=== PATIENT | male | born 1940 | race Caucasian/White ===

== ENCOUNTER 2022-10-16 15:41 | Inpatient (IN) ==
--- NOTE | 2022-10-16 16:04 | Emergency Department Note ---
Impression & Plan CHF (congestive heart failure), Fluid overload, HTN (hypertension) ED Provider Note NAME: VERNON ISSA AGE: 82 SEX: M : 1940 ARRIVES VIA: Ambulance INFORMANT: Patient, EMS ED PROVIDER(S): Tez Hanks DO CHIEF COMPLAINT: Shortness of breath HPI: Patient is an 82-year-old male who was brought in by EMS from PCPs office. Per report from EMS patient has been having shortness of breath for the past 2 weeks associated with swelling of the legs and 30 pound weight gain. [facility] He [facility] this. He denies any chest pain. No belly pain, nausea, vomiting, or diarrhea but notes the swelling in the legs coming up into the belly. No dysuria urgency or frequency. He does not believe that he takes any kind diuretics. He does admit to being told previously that he has had a previous LA. No cough or congestion. PAST MEDICAL HISTORY:See Below PAST SURGICAL HISTORY:See Below FAMILY HISTORY:See Below SOCIAL HISTORY:See Below HOME MEDICATIONS:See Below ALLERGIES:See Below VITALS:See Below PHYSICAL EXAMINATION: GENERAL: Sitting up in bed, alert, well appearing, well nourished, no distress, non-toxic EYE EXAM: normal conjunctiva. OROPHARYNX: mucous membranes are moist LUNGS: Clear to auscultation. Normal chest wall mechanics HEART: no murmurs, S1 normal and S2 normal ABDOMEN: abdomen soft, non-tender, normo-active bowel sounds, no masses, no rebound or guarding. BACK: Back is symmetrical on inspection and there is no deformity, no midline tenderness, no CVA tenderness. SKIN: no rashes and no bruising UPPER EXTREMITIES: upper extremities are grossly normal. LOWER EXTREMITIES: Pitting edema in the lower extremities tracking up to the mid thighs NEURO EXAM: Normal sensorium, cranial nerves II-XII grossly intact, normal speech, no gross weakness of arms, no gross weakness of legs. MEDICAL DECISION MAKING: Patient is an 82-year-old male who presents ER for above-stated complaint. IV was established blood work was obtained. External records were reviewed from the [facility]. Labs show no significant leukocytosis or anemia. BMP LFTs bilirubin was unremarkable. Troponin was negative. Lipase was normal. COVID was negative. Chest x-ray was without focal infiltrate. Patient was given IV Lasix and nitro paste. Updated bedside. Discussed with hospitalist admitted for further work- up. Triage Nursing notes reviewed. Limited review of prior medical records performed Vital Signs: reviewed and remarkable for no significant abnormalities Differential diagnosis: Differential diagnoses includes but is not limited to pneumonia, bronchitis, COPD/Asthma exacerbation, pneumothorax, pulmonary embolism, congestive heart failure, acute coronary syndrome ER treatment provided: See below Diagnostics interpreted by me include EKG and cardiac monitoring as listed below: -Cardiac Monitoring: An order was placed for continuous cardiac monitoring. The monitor shows a rate of 90 with sinus rhythm. -ECG: Sinus rhythm rate of 70 Left axis Poor baseline QTc 434 -Laboratory studies:Interpreted by me as stated above in MDM and shown below. Imaging studies: Xrays: As interpreted by me: Portable AP upright 1 view of the chest shows no focal infiltrate CTs show: none Consultation(s): As described in MDM Procedures:none Critical Care: None Past Med/Surg History Medical History (Updated 10/16/22 @ 22:24 by Tez Hanks DO) GERD (gastroesophageal reflux disease) HTN (hypertension) Social History (Updated 10/16/22 @ 18:24 by Jean Carlos Mccormick MD) Smoking Status: Never smoker Hx Alcohol Use: No Allergies Allergies Allergy/AdvReac Type Severity Reaction Status Date / Time simvastatin Allergy Unknown Unknown Verified 10/16/22 18:07 adalimumab [From Humira] AdvReac Intermediate NAUSEA/VOMI Verified 10/16/22 18:07 TING duloxetine AdvReac Intermediate IRRITABLE Verified 10/16/22 18:07 FEELING niacin AdvReac Intermediate Flushing Verified 10/16/22 18:07 Home Meds Home Medications Medication Instructions Recorded Confirmed amlodipine 5 mg tablet 5 mg PO DAILY 10/16/22 10/16/22 chlorthalidone 25 mg tablet 25 mg PO DAILY 10/16/22 10/16/22 diclofenac sodium 1 % topical gel 2 g topical DIRECTED PRN Pain 10/16/22 10/16/22 famotidine 20 mg tablet 20 mg PO BID 10/16/22 10/16/22 hydroxychloroquine 400 mg tablet 400 mg PO DAILY 10/16/22 10/16/22 levothyroxine 150 mcg tablet 150 mcg PO DAILYBB 10/16/22 10/16/22 metoprolol tartrate 50 mg tablet 75 mg PO BID 10/16/22 10/16/22 omeprazole 40 mg capsule,delayed 40 mg PO DAILY 10/16/22 10/16/22 release terazosin 2 mg capsule 8 mg PO HS 10/16/22 10/16/22 Results & Data (ED) Vital Signs Vital Signs - 24 hr 10/16/22 16:01 10/16/22 16:02 10/16/22 16:35 Temperature 36.7 C Temperature Source Oral Pulse Rate 70 68 Pulse Rate [Apical] 71 Pulse Rhythm Regular Pulse Rhythm [Apical] Pulse Strength Normal Pulse Strength [Apical] Respiratory Rate 20 16 Respiratory Effort / Characteristics Non-Labored Spontaneous SOB on Exertion Respiratory Depth Normal Respiratory Pattern Regular Blood Pressure 181/79 H Blood Pressure [Right Arm] 183/77 H Blood Pressure Mean 113 Blood Pressure Mean [Right Arm] 112 Blood Pressure Position Lying Blood Pressure Position [Right Arm] Pulse Oximetry 97 95 Oxygen Delivery Method Room Air Room Air Sepsis Recent Fever Within 48 Hours No Sepsis New/Unexplained Change in Mental Status N/A Sepsis Action Taken by Nursing No Action Required 10/16/22 18:07 Temperature Temperature Source Pulse Rate Pulse Rate [Apical] 72 Pulse Rhythm Pulse Rhythm [Apical] Regular Pulse Strength Pulse Strength [Apical] Normal Respiratory Rate 22 Respiratory Effort / Characteristics Non-Labored Spontaneous SOB on Exertion Respiratory Depth Normal Respiratory Pattern Blood Pressure Blood Pressure [Right Arm] 180/96 H Blood Pressure Mean Blood Pressure Mean [Right Arm] 124 Blood Pressure Position Blood Pressure Position [Right Arm] Lying Pulse Oximetry 97 Oxygen Delivery Method Room Air Sepsis Recent Fever Within 48 Hours Sepsis New/Unexplained Change in Mental Status Sepsis Action Taken by Nursing Laboratory Data 10/16/22 15:56 10/16/22 15:56 Lab Results 10/16/22 10/16/22 10/16/22 Range/Units 15:56 15:56 15:56 WBC 6.65 (4.8-10.8) K/ul RBC 4.23 L (4.70-6.10) M/uL Hgb 12.6 L (14.0-18.0) g/dl Hct 38.4 L (42.0-52.0) % MCV 90.8 (80.0-100.0) fL MCH 29.8 (25.0-34.0) pg MCHC 32.8 (32.0-36.0) g/dL RDW Std Deviation 42.6 (36.4-46.3) fL RDW Coeff of Adrian 12.8 (11.5-14.5) % Plt Count 194 (130-400) K/uL MPV 10.4 (9.4-12.4) fL Immature Gran % (Auto) 0.5 % Neut % (Auto) 65.1 % Lymph % (Auto) 25.4 % Crisp % (Auto) 6.5 % Eos % (Auto) 1.7 % Baso % (Auto) 0.8 % Neut # (Auto) 4.34 (1.40-6.50) K/uL Lymph # (Auto) 1.69 (1.2-3.4) K/uL Crisp # (Auto) 0.43 (0.11-0.59) K/uL Eos # (Auto) 0.11 (0-0.50) K/uL Baso # (Auto) 0.05 (0-0.2) K/uL Immature Gran # (Auto) 0.03 (0.01-0.20) K/uL Sodium 139 (136-145) mmol/L Potassium 3.8 (3.5-5.1) mmol/L Chloride 106 (98-107) mmol/L Carbon Dioxide 29 (21-32) mmol/L Anion Gap 4 (3-11) BUN 13 (6-23) mg/dl Creatinine 0.85 (0.6-1.4) mg/dl Est Cr Clr Drug Dosing 87.0 ml/min Est GFR ( Amer) 93.4 ml/min Est GFR (Non-Af Amer) 80.6 ml/min BUN/Creatinine Ratio 15.3 (10-20) Glucose 141 H (70-99(Fasting)) mg/dl Calcium 9.5 (8.6-10.3) mg/dl Total Bilirubin 0.3 (0.2-1.0) mg/dl AST 34 (13-39) U/L ALT 23 (7-52) U/L Alkaline Phosphatase 66 (34-104) U/L Troponin I High Sens 13.5 (0-20) pg/ml B-Natriuretic Peptide 205 H (0-100) pg/ml Total Protein 6.6 (6.0-8.3) gm/dl Albumin 3.8 (3.4-5.0) gm/dl Globulin 2.8 (2.5-4.0) gm/dl Albumin/Globulin Ratio 1.4 (0.9-2) Lipase 15 (11-82) U/L SARS-CoV-2, RNA, NAAT (NEGATIVE) 10/16/22 Range/Units 15:56 WBC (4.8-10.8) K/ul RBC (4.70-6.10) M/uL Hgb (14.0-18.0) g/dl Hct (42.0-52.0) % MCV (80.0-100.0) fL MCH (25.0-34.0) pg MCHC (32.0-36.0) g/dL RDW Std Deviation (36.4-46.3) fL RDW Coeff of Adrian (11.5-14.5) % Plt Count (130-400) K/uL MPV (9.4-12.4) fL Immature Gran % (Auto) % Neut % (Auto) % Lymph % (Auto) % Crisp % (Auto) % Eos % (Auto) % Baso % (Auto) % Neut # (Auto) (1.40-6.50) K/uL Lymph # (Auto) (1.2-3.4) K/uL Crisp # (Auto) (0.11-0.59) K/uL Eos # (Auto) (0-0.50) K/uL Baso # (Auto) (0-0.2) K/uL Immature Gran # (Auto) (0.01-0.20) K/uL Sodium (136-145) mmol/L Potassium (3.5-5.1) mmol/L Chloride (98-107) mmol/L Carbon Dioxide (21-32) mmol/L Anion Gap (3-11) BUN (6-23) mg/dl Creatinine (0.6-1.4) mg/dl Est Cr Clr Drug Dosing ml/min Est GFR ( Amer) ml/min Est GFR (Non-Af Amer) ml/min BUN/Creatinine Ratio (10-20) Glucose (70-99(Fasting)) mg/dl Calcium (8.6-10.3) mg/dl Total Bilirubin (0.2-1.0) mg/dl AST (13-39) U/L ALT (7-52) U/L Alkaline Phosphatase (34-104) U/L Troponin I High Sens (0-20) pg/ml B-Natriuretic Peptide (0-100) pg/ml Total Protein (6.0-8.3) gm/dl Albumin (3.4-5.0) gm/dl Globulin (2.5-4.0) gm/dl Albumin/Globulin Ratio (0.9-2) Lipase (11-82) U/L SARS-CoV-2, RNA, NAAT NEGATIVE (NEGATIVE) Administered Medications Amlodipine Besylate (Amlodipine Besylate 5 Mg Tab) 5 mg PO DAILY ALYSSA Stop: 11/15/22 20:29 Last Admin: 10/16/22 21:54 Dose: 5 mg Documented By: PRISCILLA Aspirin (Aspirin 81 Mg Ectab) 81 mg PO DAILY ALYSSA Stop: 11/15/22 18:29 Last Admin: 10/16/22 21:54 Dose: 81 mg Documented By: PRISCILLA Enoxaparin Sodium (Enoxaparin Inj 40 Mg/0.4 Ml Syr) 40 mg SQ Q12H ALYSSA Stop: 11/15/22 20:59 Last Admin: 10/16/22 21:56 Dose: 40 mg Documented By: PRISCILLA Famotidine (Famotidine 20 Mg Tab) 20 mg PO BID ALYSSA Stop: 11/15/22 20:59 Last Admin: 10/16/22 21:55 Dose: 20 mg Documented By: PRISCILLA Metoprolol Tartrate (Metoprolol Tartrate 25 Mg Tab) 75 mg PO BID ALYSSA Stop: 11/15/22 20:59 Last Admin: 10/16/22 21:55 Dose: 75 mg Documented By: PRISCILLA Nitroglycerin (Nitroglycerin 2% Ointment 30gm Tube) 1 inch EXT Q6H ALYSSA Stop: 11/15/22 17:59 Last Admin: 10/16/22 19:09 Dose: 1 inch Documented By: PRISCILLA Terazosin HCl (Terazosin Hcl 5 Mg Cap) 5 mg PO HS ALYSSA Stop: 11/15/22 20:59 Last Admin: 10/16/22 21:55 Dose: 5 mg Documented By: PRISCILLA Terazosin HCl (Terazosin Hcl 1 Mg Cap) 3 mg PO HS ALYSSA Stop: 11/15/22 20:59 Last Admin: 10/16/22 21:55 Dose: 3 mg Documented By: PRISCILLA Discontinued Medications Aspirin (Aspirin 81 Mg Ectab) Confirm Administered Dose 81 mg PO .STK-MED ONE Stop: 10/16/22 20:04 Last Admin: 10/16/22 20:40 Dose: Not Given Documented By: PRISCILLA Furosemide (Furosemide 40 Mg/4 Ml Vial) 40 mg IV NOW STA Stop: 10/16/22 17:49 Last Admin: 10/16/22 18:41 Dose: 40 mg Documented By: PRISCILLA Imaging Data Radiologist's Impression: Chest X-Ray 10/16/22 16:01 XR chest 1V portable CLINICAL HISTORY: Chest pain, nonspecific COMPARISON STUDY: No previous studies for comparison. FINDINGS: Severe right glenohumeral joint osteoarthritis is incidentally noted. There is no pneumothorax or pleural effusion. Lower lung predominant reticulonodular interstitial thickening is noted. There may be small calcified nodules within the lungs. Moderate cardiomegaly. No convincing evidence for pulmonary edema. IMPRESSION: 1. Lower lung predominant reticulonodular interstitial thickening. This is nonspecific although chronic etiology is favored. Correlation with prior studies, if available, is recommended. 2. Moderate cardiomegaly. Interstitial thickening is likely chronic however mild pulmonary edema would be difficult to exclude. ACT 112: Negative or not required by law. Electronically signed by: Darrius Reis M.D. 10/16/2022 4:31 PM Discharge Plan Visit Data Chief Complaint: Swelling/Edema to Extremity Stated Complaint: EDEMA, DISTENTED AB, WEIGHT GAIN ED Provider: Tez Hanks Discharge Problem: CHF (congestive heart failure), Fluid overload, HTN (hypertension) Patient Disposition: Admitted As Inpatient Discharge Instructions Interventions: ED Discharge Assessment Last Done: 10/16/22 20:21
--- NOTE | 2022-10-16 16:33 | XRay Report ---
XR chest 1V portable CLINICAL HISTORY: Chest pain, nonspecific COMPARISON STUDY: No previous studies for comparison. FINDINGS: Severe right glenohumeral joint osteoarthritis is incidentally noted. There is no pneumotho rax or pleural effusion. Lower lung predominant reticulonodular interstitial thickening is noted. The re may be small calcified nodules within the lungs. Moderate cardiomegaly. No convincing evidence for pulmonary edema. IMPRESSION: 1. Lower lung predominant reticulonodular interstitial thickening. This is nonspecific although chron ic etiology is favored. Correlation with prior studies, if available, is recommended. 2. Moderate cardiomegaly. Interstitial thickening is likely chronic however mild pulmonary edema woul d be difficult to exclude. ACT 112: Negative or not required by law. Electronically signed by: Darrius Reis M.D. 10/16/2022 4:31 PM
--- NOTE | 2022-10-16 16:42 | Electrocardiogram Report ---
Test Reason : Blood Pressure : / mmHG Vent. Rate : 070 BPM Atrial Rate : 070 BPM P-R Int : 314 ms QRS Dur : 110 ms QT Int : 402 ms P-R-T Axes : 070 -47 089 degrees QTc Int : 434 ms Sinus rhythm with 1st degree A-V block Left anterior fascicular block Left ventricular hypertrophy with repolarization abnormality Abnormal ECG No previous ECGs available Confirmed by Lalo Kyle ([id number]) on 10/16/2022 4:42:04 PM Referred By: Confirmed By:Clayton Kyle
[2022-10-16 16:47] LABS: Basophils # (auto) 0.05 K/uL (0-0.2); Basophils % (auto) 0.8 %; Eosinophils # (auto) 0.11 K/uL (0-0.50); Eosinophils % (auto) 1.7 %; Hematocrit (blood only) 38.4 % (42.0-52.0); Hemoglobin 12.6 g/dl (14.0-18.0); Immature Granulocytes # (auto) 0.03 K/uL (0.01-0.20); Immature Granulocytes % (auto) 0.5 %; Lymphocytes # (auto) 1.69 K/uL (1.2-3.4); Lymphocytes % (auto) 25.4 %; Mean Corpuscular Hemoglobin 29.8 pg (25.0-34.0); Mean Corpuscular Hgb Conc 32.8 g/dL (32.0-36.0); Mean Corpuscular Volume 90.8 fL (80.0-100.0); Mean Platelet Volume 10.4 fL (9.4-12.4); Monocytes # (auto) 0.43 K/uL (0.11-0.59); Monocytes % (auto) 6.5 %; Neutrophils # (auto) 4.34 K/uL (1.40-6.50); Neutrophils % (auto) 65.1 %; Platelet Count 194 K/uL (130-400); RDW Coefficient of Variation 12.8 % (11.5-14.5); RDW Standard Deviation 42.6 fL (36.4-46.3); Red Blood Count 4.23 M/uL (4.70-6.10); White Blood Count 6.65 K/ul (4.8-10.8)
[2022-10-16 16:49] LABS: Albumin Globulin Ratio 1.4 (0.9-2); Albumin Level 3.8 gm/dl (3.4-5.0); BUN Creatinine Ratio 15.3 (10-20); Bilirubin,Total 0.3 mg/dl (0.2-1.0); Calcium 9.5 mg/dl (8.6-10.3); Est GFR (African American) 93.4 ml/min; Est GFR (Non-African American) 80.6 ml/min; Globulin 2.8 gm/dl (2.5-4.0); Potassium 3.8 mmol/L (3.5-5.1); Total Protein 6.6 gm/dl (6.0-8.3)
[2022-10-16 16:56] LABS: Troponin I High Sensitivity 13.5 pg/ml (0-20)
[2022-10-16] MEDS ORDERED: FUROSEMIDE 40 MG/4 ML VIAL IV STA (17:48)
--- NOTE | 2022-10-16 17:49 | History & Physical Report ---
Date of Service October 16, 2022 Assessment & Plan (1) Fluid overload: Plan: Lalo is an 82-year-old male OR patient who presents from the OR office for shortness of breath, leg swelling, 30 pounds weight gain concerning for acute on chronic CHF. Patient is a very limited historian, who reports he had some type of stent placed through his right wrist due to a popped blood vessel when he was lifting something in 2019 at [place], [facility] but does not know most of his medications, notes he has never been on aspirin or Plavix, and knows he should be on "a cardiac medication "but does not know what this is and does not take it." He denies a past history of heart failure or lung disease, unclear what type of stent he received in [place] 23 years ago. No echo or records on file. No [facility] packet available for review in ER. Medical history is sig nificantly limited, release of records signed and request being sent to [facility] due to patient being extremely poor historian, unfortunately [facility] not [facility] at time of ER presentation. med reconciliation performed through pharmacy audit. At time of assessment does show signs of volume overload, will complete cardiac assessment and treat as fluid overload. Patient denies history of bleeding problems, will continue aspirin daily until cardiac history and stent history is clarified. Acute fluid overload with exertional shortness of breath and increasing exercise intolerance Reportedly with increasing leg swelling bilaterally, exercise fatigue/limitation, and 30 pound weight gain. Denies asymmetrical leg swelling With elevated BNP, no acute ischemic changes on EKG, troponin is normal No echo available for review, unclear if preserved/reduced ejection fraction Basilar crackles? Mild dependent edema on CXR, auscultation is limited by habitus. Obvious fluid overload in the legs which may be due to CHF versus venous stasis Received Lasix 40 mg IV in the ER, continue twice daily with leg elevation and trend creatinine Given her significant lower extremity edema with relatively minimal pulmonary edema, will also obtain lower extremity Dopplers to R/oh DVT Patient reports he is "a salt a holic "and eats a lot of salty food every day, has never restricted his sodium intake. 2 g sodium limitation on admission No leukocytosis, no evidence of pneumonia Patient reports he had a normal dobutamine stress test performed 8 years ago which was normal, but he did not know other details regarding this COVID-negative No signs of ACS on admission Denies alcohol/tobacco use. Denies liver disease. Denies renal disease History of stenting procedure Patient reports 20 years ago he was lifting something when he "blew a blood vessel in his heart ", had a right radial access and had a stent placed at [facility]. He does not know any additional details regarding the stent, and does not have a stent card. He reports he was not on aspirin or Plavix afterwards, and this was not associated with heart failure. He reports he does not think this was a heart attack, it was a burst vessel, and that he had a dobutamine stress test 8 years ago which was normal. Records unclear, pending reconciliation from [facility] - Case reviewed with resident provider. No notes available in [facility] system, but there is one set o flabs from 1999 with an elevated trop I of 4.8. No additional notes/echo/procedure notes available for review Hypertension Continue amlodipine, chlorthalidone, metoprolol Lasix as noted History of hypothyroidism Continue Synthroid TSH pending DVT prophylaxis: Lovenox Disposition: Medical telemetry for diuresis CODE STATUS: DNR/DNI, discussed with patient at bedside Diet: Heart healthy, low-salt (2) HTN (hypertension): History of Present Illness Primary Care Provider: [facility] Lalo is an 82-year-old male OR patient who presents from the OR office for shortness of breath, leg swelling, 30 pounds weight gain concerning for acute on chronic CHF. Patient has not had chest pain at any point, and has never been on diuretics. He has previously been told he had an DE. Per pt '23 years ago I picked up something I shouldnt have and I popped a blood vessle. I drove to the hospital and I had to get TPA for my heart at [facility]. Went to [place] after and they prepared me I had a stent though my R wrist and put in a stent.' Does not see a verification lead Denies any hx of heart failure Meds: Terazosin, thyroid medicine s/p thyroidectomy, and is not sure what else. 'Was on some heart medicine after my stent but not aspirin, just one and that was all.' 'Im supposed to take blood pressure medicine im not sure what, bu tI dont. Makes me tired.' stress test8 years ago dobutamine was normal no ischemia. REports [facility] would have records from procedure in 1999. EKG: Sinus rhythm with first-degree AV block, no acute ST segment changes, QTc 434. Denies chest pain or chest pressure recently Gets cold easily, no fever/chills/sweats. No nausea/vomtiging. Endorses exertional short of breath, hasn't noticed much orthopnea. +leg swelling bilaterally without asymmetry. No calf pain. No warmth/tenderness fo the legs, chronic darkeneing of the lower legs bilaterally "I'm a uicz-r-dorat, I eat enormous amounts". Lately having more ham and eggs, salts foods, no soups, some chips. Alelrgic to niacin. No hx statin use. Medical History: Reviewed Medications: Reviewed Surgical History: Reviewed Family history: Reviewed Allergies: Reviewed. Allergic to niacin, got flushed Social History: Beer periodically but rarely. No tobacco use. Code Status: Full Code [facility] [place] [facility] [place]. Allergies Allergy/AdvReac Type Severity Reaction Status Date / Time simvastatin Allergy Unknown Unknown Verified 10/16/22 18:07 adalimumab [From Humira] AdvReac Intermediate NAUSEA/VOMI Verified 10/16/22 18:07 TING duloxetine AdvReac Intermediate IRRITABLE Verified 10/16/22 18:07 FEELING niacin AdvReac Intermediate Flushing Verified 10/16/22 18:07 Home Medications Medication Instructions Recorded Confirmed Type amlodipine 5 mg tablet 5 mg PO DAILY 10/16/22 10/16/22 History chlorthalidone 25 mg tablet 25 mg PO DAILY 10/16/22 10/16/22 History diclofenac sodium 1 % topical gel 2 g topical DIRECTED PRN Pain 10/16/22 10/16/22 History famotidine 20 mg tablet 20 mg PO BID 10/16/22 10/16/22 History hydroxychloroquine 400 mg tablet 400 mg PO DAILY 10/16/22 10/16/22 History levothyroxine 150 mcg tablet 150 mcg PO DAILYBB 10/16/22 10/16/22 History metoprolol tartrate 50 mg tablet 100 mg PO BID 10/16/22 10/16/22 History omeprazole 40 mg capsule,delayed 40 mg PO DAILY 10/16/22 10/16/22 History release terazosin 2 mg capsule 2 mg PO HS 10/16/22 10/16/22 History Past Med/Surg History Medical History (Updated 10/16/22 @ 18:23 by Jean Carlos Mccormick MD) GERD (gastroesophageal reflux disease) HTN (hypertension) Social History (Updated 10/16/22 @ 18:24 by Jean Carlos Mccormick MD) Smoking Status: Never smoker Hx Alcohol Use: No Review of Systems Review of Systems: All systems reviewed & are unremarkable except as noted in HPI & below Physical Exam Physical Exam: General: A&Ox3. NAD. Cooperative. HEENT: Atraumatic, normocephalic. Vision/hearing intact Pulm: Diminished in the bases with bibasilar crackles, no overt rales. Symmetrical chest rise. No increased work of breathing. No respiratory distress. Cardiac: RRR, -mrg. Radial pulses intact and symmetrical. JVD difficult to appreciate due to body habitus Abdominal: Obese, nontender, nondistended, soft. BS present. Extremities: Bilateral pitting edema through the mid thigh. Right anterior armenta with superficial ulceration/weeping ulcer without surrounding erythema/warmth/tenderness. Chronic venous stasis changes and hyperpigmentation bilaterally Results & Data Results & Data Vital Signs (Past 12 Hours) Vital Signs Temp Pulse Pulse Resp BP BP Pulse Ox 10/16/22 16:35 71 16 183/77 H 95 10/16/22 16:02 68 10/16/22 16:01 36.7 C 70 20 181/79 H 97 O2 Del Method 10/16/22 16:35 Room Air 10/16/22 16:02 10/16/22 16:01 Room Air PG Care Time/CCT Total # of Minutes Spent Total Time Spent with Patient: Total time spent is greater than 50% in coordination of care (as documented) at patient's floor/unit and/or counseling patient: Coding Level of Care Code 85633 INT INP/OBS CARE 3/75MIN Diagnoses Fluid overload E87.70 HTN (hypertension) I10
[2022-10-16] MEDS: NITROGLYCERIN 2% OINTMENT 30GM TUBE EXT SCH ×2 (19:09→23:29)
[2022-10-16] MEDS ORDERED: ASPIRIN 81 MG ECTAB PO ONE (20:03)
[2022-10-16] MEDS ORDERED: amLODIPine BESYLATE 5 MG TAB PO SCH (20:30)
[2022-10-16] MEDS: ASPIRIN 81 MG ECTAB PO SCH (21:54)
[2022-10-16] MEDS: TERAZOSIN HCL 5 MG CAP PO SCH (21:55)
[2022-10-16] MEDS: FAMOTIDINE 20 MG TAB PO SCH (21:55)
[2022-10-16] MEDS: METOPROLOL TARTRATE 25 MG TAB PO SCH (21:55)
[2022-10-16] MEDS: TERAZOSIN HCL 1 MG CAP PO SCH (21:55)
[2022-10-16] MEDS: ENOXAPARIN INJ 40 MG/0.4 ML SYR SQ SCH (21:56)
--- NOTE | 2022-10-16 23:14 | Ultrasound Report ---
Exam(s): US VENOUS BILATERAL LOWER EXTREMITIES EXAM: US Duplex Bilateral Lower Extremities Veins CLINICAL HISTORY: Reason for exam: r/o dvt. TECHNIQUE: Real-time duplex ultrasound scan of the bilateral lower extremity veins integrating B-mode two-dimensional vascular structure, Doppler spectral analysis, color flow Doppler imaging and compression. COMPARISON: No relevant prior studies available. FINDINGS: Right deep veins: Unremarkable. No DVT in the right common femoral, femoral, proximal deep femoral or popliteal veins. The veins demonstrate normal color flow, are normally compressible, with normal phasic flow and/or augmentation response. Right superficial veins: Unremarkable. No thrombus in the visualized right great saphenous vein. Left deep veins: Unremarkable. No DVT in the left common femoral, femoral, proximal deep femoral or popliteal veins. The veins demonstrate normal color flow, are normally compressible, with normal phasic flow and/or augmentation response. Left superficial veins: Unremarkable. No thrombus in the visualized left great saphenous vein. Soft tissues: No acute findings. No popliteal cyst. IMPRESSION: Normal bilateral lower extremity duplex venous ultrasound. Electronically signed by: Collin Landeros MD 10/16/22 23:13 PM
[2022-10-17 05:12] LABS: Basophils # (auto) 0.02 K/uL (0-0.2); Basophils % (auto) 0.4 %; Eosinophils % (auto) 1.8 %; Hematocrit (blood only) 36.4 % (42.0-52.0); Hemoglobin 12.3 g/dl (14.0-18.0); Immature Granulocytes # (auto) 0.03 K/uL (0.01-0.20); Immature Granulocytes % (auto) 0.5 %; Lymphocytes # (auto) 1.67 K/uL (1.2-3.4); Lymphocytes % (auto) 29.8 %; Mean Corpuscular Hemoglobin 29.9 pg (25.0-34.0); Mean Corpuscular Hgb Conc 33.8 g/dL (32.0-36.0); Mean Corpuscular Volume 88.6 fL (80.0-100.0); Mean Platelet Volume 10.1 fL (9.4-12.4); Monocytes # (auto) 0.45 K/uL (0.11-0.59); Neutrophils # (auto) 3.34 K/uL (1.40-6.50); Neutrophils % (auto) 59.5 %; Platelet Count 180 K/uL (130-400); RDW Coefficient of Variation 12.7 % (11.5-14.5); RDW Standard Deviation 41.2 fL (36.4-46.3); Red Blood Count 4.11 M/uL (4.70-6.10); White Blood Count 5.61 K/ul (4.8-10.8)
[2022-10-17 05:22] LABS: BUN Creatinine Ratio 14.7 (10-20); Creatinine Clr Calc Pharmacy 98.6 ml/min; Est GFR (African American) 98.3 ml/min; Est GFR (Non-African American) 84.8 ml/min; Potassium 3.3 mmol/L (3.5-5.1)
[2022-10-17] MEDS: NITROGLYCERIN 2% OINTMENT 30GM TUBE EXT SCH (06:35)
[2022-10-17] MEDS: LEVOTHYROXINE SODIUM 150 MCG TABLET PO SCH (06:35)
[2022-10-17] MEDS: FAMOTIDINE 20 MG TAB PO SCH ×2 (10:09→21:55)
[2022-10-17] MEDS: PANTOprazole 40 MG TAB PO SCH (10:10)
[2022-10-17] MEDS: POTASSIUM CHLORIDE CRTAB 20 MEQ TABCR PO SCH ×2 (10:10→21:56)
[2022-10-17] MEDS: METOPROLOL TARTRATE 25 MG TAB PO SCH ×2 (10:10→21:57)
[2022-10-17] MEDS: FUROSEMIDE 40 MG/4 ML VIAL IV SCH ×2 (10:11→16:40)
[2022-10-17] MEDS: ASPIRIN 81 MG ECTAB PO SCH (10:11)
[2022-10-17] MEDS: ENOXAPARIN INJ 40 MG/0.4 ML SYR SQ SCH ×2 (10:12→21:55)
--- NOTE | 2022-10-17 12:02 | XCELERA ---
[id number]
--- NOTE | 2022-10-17 13:39 | Hospitalist Progress Note ---
Date of Service October 17, 2022 Assessment & Plan (1) CHF (congestive heart failure): Plan: Acute diastolic. Continue Lasix diuresis. Amlodipine and Nitropaste have been discontinued. Monitor intake and output. Serial chest x-ray (2) GERD (gastroesophageal reflux disease): Plan: Protonix therapy (3) HTN (hypertension): Plan: Continue metoprolol. Amlodipine has been discontinued since it may be contributing to peripheral edema (4) Morbid obesity: Plan: BMI greater than 40. Significant weight loss recommended (5) Ischemic heart disease: Plan: History of coronary stent at a different institution. No records here. Continue current medical management (6) Primary hypothyroidism: Plan: Stable. Continue thyroid replacement. Check thyroid levels Plan Anticipate eventual discharge back to home Admission and Anticipated Discharge Date Admission Date: October 16, 2022 Subjective Alert and oriented. No acute distress. He appears to have acute diastolic CHF. Cardiac echo reveals left ventricular hypertrophy with normal ejection fraction and evidence of diastolic dysfunction. Potassium supplementation ordered. Amlodipine and topical nitrates discontinued. We will repeat portable chest x- ray tomorrow. Continue intravenous Lasix every 12 hours. Review of Systems Review of Systems: Constitutional-no fever or chills ENT-no blurred vision, no double vision, no epistaxis, no sore throat Respiratory-shortness of breath at rest and with exertion. Orthopnea. Cardiac-no palpitations, no chest pain, no syncope GI-no nausea, vomiting, diarrhea, melena, hematochezia -no urinary retention, no urinary incontinence, no dysuria, no hematuria Musculoskeletal-no joint pain, no muscle tenderness Skin-no bruising, no rashes, no pruritus Neuro-no isolated weakness, no paresthesia, no weakness Psych-no depression, no anxiety Physical Exam Physical Exam: General-alert and oriented x3, no fevers, no chills. Morbidly obese HEENT-head atraumatic and normocephalic, pupils equal and reactive to light, extraocular muscles intact Neck-no lymphadenopathy or thyromegaly, trachea midline Chest-diminished breath sounds bilaterally. Bibasilar inspiratory rales. No wheezing Cardiac-regular rate and rhythm, normal S1 and S2 Abdomen-normal bowel sounds, nontender, no hepatosplenomegaly Extremities-2+ pitting edema bilateral lower extremities with chronic venous stasis changes Neuro-cranial nerves II through XII intact, motor and sensory function within no rmal limits, strength symmetrical , no focal deficits Psych-normal affect, normal mood Results & Data Results & Data Vital Signs (Past 12 Hours) Vital Signs Temp Pulse Pulse Resp BP Pulse Ox Pulse Ox 10/17/22 11:45 36.5 C 62 13 112/52 L 97 10/17/22 10:15 65 18 123/56 L 95 10/17/22 09:41 90 16 171/87 H 95 10/17/22 03:15 97 10/17/22 03:15 68 16 139/59 L 97 10/17/22 02:24 57 L 17 95 10/17/22 01:40 56 L 15 93 O2 Del Method O2 Del Method FiO2 10/17/22 11:45 Room Air 10/17/22 10:15 Room Air 10/17/22 09:41 Room Air 10/17/22 03:15 CPAP 10/17/22 03:15 CPAP 10/17/22 02:24 21 10/17/22 01:40 Laboratory Results 10/17/22 04:42 10/17/22 04:42 PG Care Time/CCT Total # of Minutes Spent Total Time Spent with Patient: Total time spent is greater than 50% in coordination of care (as documented) at patient's floor/unit and/or counseling patient: Coding Level of Care Code 39337 SUB INP/OBS CARE 3/50MIN Diagnoses CHF (congestive heart failure) I50.9 GERD (gastroesophageal reflux disease) K21.9 HTN (hypertension) I10 Morbid obesity E66.01 Ischemic heart disease I25.9 Primary hypothyroidism E03.9
[2022-10-17] MEDS: TERAZOSIN HCL 5 MG CAP PO SCH (21:56)
[2022-10-17] MEDS: TERAZOSIN HCL 1 MG CAP PO SCH (21:57)
[2022-10-18] MEDS: LEVOTHYROXINE SODIUM 150 MCG TABLET PO SCH (06:14)
[2022-10-18 06:39] LABS: Basophils # (auto) 0.03 K/uL (0-0.2); Basophils % (auto) 0.5 %; Eosinophils % (auto) 1.7 %; Hematocrit (blood only) 35.9 % (42.0-52.0); Hemoglobin 12.3 g/dl (14.0-18.0); Immature Granulocytes # (auto) 0.02 K/uL (0.01-0.20); Immature Granulocytes % (auto) 0.3 %; Lymphocytes # (auto) 1.83 K/uL (1.2-3.4); Lymphocytes % (auto) 31.5 %; Mean Corpuscular Hemoglobin 29.9 pg (25.0-34.0); Mean Corpuscular Hgb Conc 34.3 g/dL (32.0-36.0); Mean Corpuscular Volume 87.1 fL (80.0-100.0); Mean Platelet Volume 10.1 fL (9.4-12.4); Monocytes # (auto) 0.47 K/uL (0.11-0.59); Monocytes % (auto) 8.1 %; Neutrophils # (auto) 3.36 K/uL (1.40-6.50); Neutrophils % (auto) 57.9 %; Platelet Count 189 K/uL (130-400); RDW Coefficient of Variation 12.7 % (11.5-14.5); RDW Standard Deviation 40.5 fL (36.4-46.3); Red Blood Count 4.12 M/uL (4.70-6.10); White Blood Count 5.81 K/ul (4.8-10.8)
[2022-10-18 06:50] LABS: BUN Creatinine Ratio 13.4 (10-20); Calcium 9.1 mg/dl (8.6-10.3); Creatinine Clr Calc Pharmacy 88.2 ml/min; Est GFR (African American) 94.8 ml/min; Est GFR (Non-African American) 81.8 ml/min; Potassium 3.5 mmol/L (3.5-5.1)
[2022-10-18] MEDS: METOPROLOL TARTRATE 25 MG TAB PO SCH (07:34)
[2022-10-18] MEDS: FAMOTIDINE 20 MG TAB PO SCH (07:34)
[2022-10-18] MEDS: ENOXAPARIN INJ 40 MG/0.4 ML SYR SQ SCH (07:35)
[2022-10-18] MEDS: PANTOprazole 40 MG TAB PO SCH (07:35)
[2022-10-18] MEDS: POTASSIUM CHLORIDE CRTAB 20 MEQ TABCR PO SCH (07:35)
[2022-10-18] MEDS: FUROSEMIDE 40 MG/4 ML VIAL IV SCH (07:35)
[2022-10-18] MEDS: ASPIRIN 81 MG ECTAB PO SCH (07:35)
--- NOTE | 2022-10-18 09:33 | XRay Report ---
XR chest 1V portable CLINICAL HISTORY: CHF TECHNIQUE: Single frontal radiograph of the chest was obtained. Comparison: None available at the time of this dictation. FINDINGS: Exam is limited by patient rotation. Cardiomegaly is noted. Right hilar prominence is nonspecific, ma y represent pulmonary vasculature. Prominent pulmonary vascularity is seen throughout the lungs. No e vidence of pleural effusion or pneumothorax. IMPRESSION: Cardiomegaly and mild pulmonary edema. ACT 112: Negative or not required by law. Electronically signed by: Usman Toussaint M.D. 10/18/2022 9:30 AM
--- NOTE | 2022-10-18 11:12 | Discharge Summary ---
Date of Service October 18, 2022 Admission HPI Per Admitting Provider Lalo is an 82-year-old male [facility] who presents from [facility] [place] office for shortness of breath, leg swelling, 30 pounds weight gain concerning for acute on chronic CHF. Patient has not had chest pain at any point, and has never been on diuretics. 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 Per pt '23 years ago I picked up something I shouldnt have and I popped a blood vessle. I drove to the hospital and I had to get TPA for my heart at [facility]. Went to [place] after and they prepared me I had a stent though my R wrist and put in a stent.' Does not see a paper hanger Denies any hx of heart failure Meds: Terazosin, thyroid medicine s/p thyroidectomy, and is not sure what else. 'Was on some heart medicine after my stent but not aspirin, just one and that was all.' 'Im supposed to take blood pressure medicine im not sure what, bu tI dont. Makes me tired.' stress test8 years ago dobutamine was normal no ischemia. [facility] [place] have records from procedure in 1999. EKG: Sinus rhythm with first-degree AV block, no acute ST segment changes, QTc 434. Denies chest pain or chest pressure recently Gets cold easily, no fever/chills/sweats. No nausea/vomtiging. Endorses exertional short of breath, hasn't noticed much orthopnea. +leg swelling bilaterally without asymmetry. No calf pain. No warmth/tenderness fo the legs, chronic darkeneing of the lower legs bilaterally "I'm a epiy-s-feoxr, I eat enormous amounts". Lately having more ham and eggs, salts foods, no soups, some chips. Alelrgic to niacin. No hx statin use. Medical History: Reviewed Medications: Reviewed Surgical History: Reviewed Family history: Reviewed Allergies: Reviewed. Allergic to niacin, got flushed Social History: Beer periodically but rarely. No tobacco use. Code Status: Full Code [facility] [place] [facility] [place]. Principal Diagnosis Acute diastolic CHF, hypokalemia Discharge Exam General-alert and oriented x3, no fevers, no chills. Morbidly obese HEENT-head atraumatic and normocephalic, pupils equal and reactive to light, extraocular muscles intact Neck-no lymphadenopathy or thyromegaly, trachea midline Chest-diminished breath sounds bilaterally. Bibasilar inspiratory rales have resolved. No wheezing Cardiac-regular rate and rhythm, normal S1 and S2 Abdomen-normal bowel sounds, nontender, no hepatosplenomegaly Extremities-2+ pitting edema bilateral lower extremities with chronic venous stasis changes Neuro-cranial nerves II through XII intact, motor and sensory function within normal limits, strength symmetrical , no focal deficits Psych-normal affect, normal mood Discharge Data Allergies Allergy/AdvReac Type Severity Reaction Status Date / Time simvastatin Allergy Unknown Unknown Verified 10/16/22 18:07 adalimumab [From Humira] AdvReac Intermediate NAUSEA/VOMI Verified 10/16/22 18:07 TING duloxetine AdvReac Intermediate IRRITABLE Verified 10/16/22 18:07 FEELING niacin AdvReac Intermediate Flushing Verified 10/16/22 18:07 Consultations 10/16/22 17:49 ED Decision to Admit Stat Ordered Studies 10/16/22 20:21 US venous doppler [facility] Urgent Hospital Course (1) CHF (congestive heart failure): Acute diastolic. Treated while hospitalized with Lasix diuresis. Amlodipine and Nitropaste have been discontinued. Amlodipine could add to his peripheral edema which may cloud the diagnostic picture. We will continue oral Lasix along with potassium at discharge. Chest x-ray done today, October 18, reveals resolution of CHF (2) GERD (gastroesophageal reflux disease): Protonix therapy (3) HTN (hypertension): Continue metoprolol. Amlodipine has been discontinued since it may be contributing to peripheral edema (4) Morbid obesity: BMI greater than 40. Significant weight loss recommended (5) Ischemic heart disease: History of coronary stent at a different institution. No records here. Continue current medical management (6) Primary hypothyroidism: Stable. Continue thyroid replacement. Check thyroid levels Plan We will discharge to home today, October 18 Total Time Total Time Spent Total Time Spent (In Minutes): 40 minutes Discharge Plan Discharge Items Patient Disposition: Home - Self-Care Reason For Visit: SUSPECTED ACUTE CHF Discharge Diagnosis: Acute diastolic CHF, hypokalemia Activity: Resume your previous activity Non-emergency contact: Primary Care Provider Call non-emergency contact if: you have any medication questions Follow-up/Referrals: [facility] [Primary Care Provider] - Diet: Regular and Heart Healthy Addtl Attending Provider Instructions: Take Lasix 80 mg twice daily along with potassium 10 mEq twice daily. Your primary care provider may decrease the Lasix dosage as he sees fit Pending Studies at Discharge: No Stand-Alone Forms: [facility], Smoking Cessation Medications and DC Order Prescriptions: New furosemide [Lasix] 80 mg tablet 80 mg PO BID Qty: 60 0RF potassium chloride 10 mEq capsule, extended release 10 meq PO BID Qty: 60 0RF aspirin 81 mg Tablet,Delayed Release (Dr/Ec) 81 mg PO DAILY Qty: 0 0RF Continued omeprazole 40 mg Capsule,Delayed Release(Dr/Ec) 40 mg PO DAILY famotidine 20 mg Tablet 20 mg PO BID terazosin 2 mg Capsule 8 mg PO HS levothyroxine 150 mcg Tablet 150 mcg PO DAILYBB metoprolol tartrate 50 mg Tablet 75 mg PO BID diclofenac sodium [Voltaren] 1 % Gel 2 g TOPICAL DIRECTED PRN (Reason: Pain) hydroxychloroquine 400 mg Tablet 400 mg PO DAILY Discontinued chlorthalidone 25 mg Tablet 25 mg PO DAILY amlodipine 5 mg Tablet 5 mg PO DAILY Discharge Orders: Discharge Order- CHF (Routine); Ordered 10/18/22 Ordered By: Felipe Cleary Admission Data Admit Date/Time: 10/16/22 18:19 Attending Provider: Felipe Cleary Admit Provider: Jean Carlos Mccormick Primary Care Provider: [facility] Other Providers: Jean Carlos Mccormick ; [facility] Coding Level of Care Code 46270 INP/OBS DISCH >30 MIN Diagnoses CHF (congestive heart failure) I50.9 GERD (gastroesophageal reflux disease) K21.9 HTN (hypertension) I10 Morbid obesity E66.01 Ischemic heart disease I25.9 Primary hypothyroidism E03.9
== END 2022-10-18 12:13 | disposition home or self-care (01) | DRG 291 ==
LOC: ED 15:41 → SUATTDRO 18:19 → EDINP 18:19 → 2N 20:21